=== PATIENT | male | born 1960 | race Caucasian/White ===

== ENCOUNTER → 2018-10-13 | Outpatient (CLI) | payer OTHER | LOC: COL.VAS 13:34 | DX: I35.1 Nonrheumatic aortic (valve) insufficiency (principal) ==

== ENCOUNTER → 2018-11-11 | Outpatient (CLI) | payer SELFPAY ==
[2018-11-11 15:57] LABS: CALCIUM 9.7 mg/dL (8.4-10.2); CREATININE, serum 0.74 (0.66-1.25); POTASSIUM 4.8 mmol/L (3.4-5.0); URIC ACID 5.4 mg/dL (3.5-8.5)
== END ==
LOC: ZCOL.LAB 15:20
DX: B19.20 Unspecified viral hepatitis C without hepatic coma (principal); I10 Essential (primary) hypertension

== ENCOUNTER → 2019-02-19 | Outpatient (CLI) | payer SELFPAY ==
[2019-02-19 18:44] LABS: ALBUMIN 4.4 gm/dL (3.5-5.0); BILIRUBIN,TOTAL 1.2 mg/dL (0.0-1.0); CALCIUM 9.5 mg/dL (8.4-10.2); CREATININE, serum 0.69 (0.66-1.25); TOTAL PROTEIN 7.7 gm/dL (6.4-8.2)
== END ==
LOC: ZLAB.FHCC 17:59 → ZCOL.LAB 17:59
PROVIDERS: Pediatrics
DX: B19.20 Unspecified viral hepatitis C without hepatic coma (principal)

== ENCOUNTER → 2019-02-23 | Outpatient (CLI) | payer SELFPAY | LOC: ZLAB.FHCC 15:14 | DX: B17.10 Acute hepatitis C without hepatic coma (principal) | CPT/HCPCS: 87522 ==

== ENCOUNTER → 2019-04-17 | Outpatient (CLI) | payer SELFPAY ==
[2019-04-17 14:46] LABS: TOTAL IRON BINDING CAPACITY 371 ug/dL (261-462)
[2019-04-18 02:38] LABS: IRON,SERUM 155 ug/dL (35-150)
== END ==
LOC: COL.LAB 13:33
PROVIDERS: Physician Assistant
DX: B17.10 Acute hepatitis C without hepatic coma (principal)

== ENCOUNTER → 2019-04-23 | Outpatient (CLI) | payer SELFPAY | LOC: COL.RAD 11:25 | DX: B17.10 Acute hepatitis C without hepatic coma (principal) ==

== ENCOUNTER → 2019-11-02 | Outpatient (CLI) | payer SELFPAY ==
[2019-11-02 15:30] LABS: BASO % 0.2 % (0.0-2.0); EOS # 0.2 (0.0-0.7); EOS % 1.6 % (0-4.0); GRAN # 8.1 (1.4-6.5); GRAN % 63.1 % (42.2-75.2); HEMATOCRIT 50.7 % (42.0-52.0); HEMOGLOBIN 17.5 g/dl (13.5-18.0); LYMPH # 3.5 (1.2-3.4); LYMPH % 27.2 % (20.0-51.0); MEAN CELL VOLUME 96 fl (80.0-100.0); MEAN CORPUSCULAR HEMOGLOBIN 33 pg (27.0-31.0); MEAN CORPUSCULAR HGB CONC 35 g/dl (33.0-37.0); MEAN PLATELET VOLUME 9.1 fl (7.4-10.4); MONO % 7.4 % (1.7-9.3); PLATELET COUNT 205 K/mm3 (130-400); RED BLOOD COUNT 5.29 M/mm3 (4.20-5.60); REDCELL DISTRIBUTION WIDTH-CV 13.4 % (11.5-14.5)
[2019-11-02 15:44] LABS: ALBUMIN 4.5 gm/dL (3.5-5.0); CALCIUM 9.6 mg/dL (8.4-10.2); CREATININE, serum 0.78 (0.66-1.25); POTASSIUM 4.3 mmol/L (3.4-5.0); TOTAL PROTEIN 8.5 gm/dL (6.4-8.2)
== END ==
LOC: COL.LAB 14:58
PROVIDERS: Student in an Organized Health Care Education/Training Program
DX: B19.20 Unspecified viral hepatitis C without hepatic coma (principal)
CPT/HCPCS: 87522

== ENCOUNTER → 2020-01-19 | Outpatient (CLI) | payer SELFPAY | LOC: COL.LAB 09:31 | DX: B19.20 Unspecified viral hepatitis C without hepatic coma (principal) | CPT/HCPCS: 87522 ==

== ENCOUNTER → 2020-05-10 | Outpatient (CLI) | payer SELFPAY ==
[~2020-05-10] VITALS: Ht 182.9 cm; Wt 92.7 kg
[2020-05-10] VITALS (12 sets, daily range): BP systolic 117–158; BP diastolic 65–93; PULSE 60–75
[~2020-05-10] MED LIST: OXY IR5 MG PO; PRINIVIL10 MG PO
[2020-05-10 10:26] LABS: INR 1.3 (0.8-3.0); PROTHROMBIN TIME 15.1 SECONDS (9.7-12.8)
--- NOTE | 2020-05-10 10:35 | NUR ---
Dr Hanson informed of PT/INR. Dr Hanson states it is ok to proceed with procedure.
--- NOTE | 2020-05-10 10:40 | NUR ---
Pt to ct per ambulation, pt placed in supine position on ct table. Monitors applied.
--- NOTE | 2020-05-10 10:55 | NUR ---
Specimens obtained by Dr Mann and placed in formalin. Specimen labeled.
--- NOTE | 2020-05-10 13:05 | NUR ---
Pt out to car per wheelchair, denies complaints at this time. Resp even and easy. Pt up and into car without assistance.
== END ==
LOC: COL.RAD 09:30
PROVIDERS: Internal Medicine
DX: K76.89 Other specified diseases of liver (principal)
CPT/HCPCS: J3010

== ENCOUNTER 2020-07-01 15:15 | Inpatient (IN) | payer MEDICAID ==
[~2020-07-01] VITALS: Ht 182.9 cm; Wt 84.1 kg
[2020-07-01] MEDS ORDERED: MIRALAX PA17 GM/Dose PO (17:59)
[2020-07-01] MEDS ORDERED: MEGACE20 MG (17:59)
[2020-07-01] MEDS ORDERED: COLACE 100100 MG/CAP PO (18:07)
[2020-07-01] MEDS ORDERED: AMBIEN 5MG TABLE5 MG PO (18:20)
[2020-07-01] MEDS ORDERED: ZOFRAN8 MG PO (18:21)
[2020-07-01] MEDS ORDERED: ROXICODONE 55 MG/TAB PO (18:22)
--- NOTE | 2020-07-01 19:15 | NUR ---
RECEIVED CHANGE OF SHIFT REPORT FROM DAY SHIFT NURSE.
[2020-07-01 20:04] VITALS: BP 126/73; PULSE 99; TEMP 97.5
--- NOTE | 2020-07-01 20:10 | NUR ---
REPORTS GENERALIZED WEAKNESS FOR THE LAST FEW DAYS, REPORTS SHORTNESS OF AIR WITH EXERTION, DENIES NUMBNESS/TINGLING TO EXTREMITIES. REPORTS POOR APPETITE FOR THE PAST MONTH WITH REPORTED 50# WT LOSS IN THE LAST 6 WEEKS.
[2020-07-01 21:21] VITALS: BP 133/82
[2020-07-02 00:23] VITALS: BP 118/76; PULSE 102; TEMP 97.7
[2020-07-02 04:10] VITALS: BP 109/72; PULSE 91; TEMP 97.5
[2020-07-02 06:20] LABS: BASO % 0.2 % (0.0-2.0); EOS % 0.3 % (0-4.0); GRAN # 10.1 (1.4-6.5); GRAN % 82.4 % (42.2-75.2); HEMATOCRIT 39.5 % (42.0-52.0); HEMOGLOBIN 13.3 g/dl (13.5-18.0); LYMPH # 1.2 (1.2-3.4); LYMPH % 10.1 % (20.0-51.0); MEAN CELL VOLUME 100 fl (80.0-100.0); MEAN CORPUSCULAR HEMOGLOBIN 34 pg (27.0-31.0); MEAN CORPUSCULAR HGB CONC 34 g/dl (33.0-37.0); MEAN PLATELET VOLUME 9.7 fl (7.4-10.4); MONO # 0.7 (0.1-0.6); MONO % 6.1 % (1.7-9.3); PLATELET COUNT 181 K/mm3 (130-400); RED BLOOD COUNT 3.97 M/mm3 (4.20-5.60); REDCELL DISTRIBUTION WIDTH-CV 15.1 % (11.5-14.5)
[2020-07-02 06:33] LABS: ALBUMIN 3.2 gm/dL (3.5-5.0); CALCIUM 11.7 mg/dL (8.4-10.2); CREATININE, serum 0.79 (0.66-1.25); POTASSIUM 4.8 mmol/L (3.4-5.0); TOTAL PROTEIN 7.1 gm/dL (6.4-8.2)
--- NOTE | 2020-07-02 07:10 | NUR ---
CHANGE OF SHIFT REPORT GIVEN TO DAY SHIFT NURSEFARHAN.
[2020-07-02 07:41] VITALS: BP 112/64; PULSE 92
--- NOTE | 2020-07-02 08:00 | NUR ---
Patient sitting up in bed, wanting to sit on the edge of the bed. Nursing staff assisted patient to the recliner, chair alarm on. A&Ox3. Reporting pain in abdomen, pain medication given as requested. VSS. Patient drowsy. IV CDI. Patient instructed to call nursing staff for assistance with ambulation. Patient verbalized an understanding. Call light within reach. Bed alarm on
[2020-07-02 08:38] LABS: INR 1.5 (0.8-3.0); PROTHROMBIN TIME 17.2 SECONDS (9.7-12.8)
[2020-07-02 12:00] VITALS: BP 108/63; PULSE 86; TEMP 98.5
--- NOTE | 2020-07-02 12:15 | NUR ---
Paracentesis at the bedside with IR. Patient tolerated well. VS monitored post-op. Bandaid on right side abdomen. Patient resting in bed. Will continue to monitor VS. Call light within reach. Bed alarm on
[2020-07-02 14:27] LABS: PERITONEAL -POLYMORPHONUCLEAR 24.9 % (0-25); PERITONEAL FLUID RBC 1000 /mm3 (0-0)
--- NOTE | 2020-07-02 15:06 | NUR ---
Plans to return home independently. Patient reports that he resides in [facility]. Patient reports that his DTR his EMR contact Darian Jenningsbarber . Patient reports that PCP Dr. Livingston. RX obtained at [facility]. Patient uses cane and his Dr is at the [facility]. Patient denies having any use for [facility]. Educated on services. Will continue to follow for care.
[2020-07-02 16:00] VITALS: BP 110/59; PULSE 90; TEMP 98.4
--- NOTE | 2020-07-02 17:49 | NUR ---
Patient up in the bathroom, has been resting most of the shift. Had a paracentesis and tolerated well. Reports pain in abdomen and pain medication given as requested. A&Ox3. VSS. IV CDI. Nursing staff encouraging patient to increase PO intake. Nurse assisted patient to recliner and patient stating feeling nauseous. Nausea medication given to the patient. Call light within reach. Chair alarm on
--- NOTE | 2020-07-02 19:00 | NUR ---
Received report from Brigida. Seen patient asleep in the recliner. Chair alarm on. He is on room air.
[2020-07-02 19:31] VITALS: BP 102/68; PULSE 95; TEMP 97.4
--- NOTE | 2020-07-02 20:23 | NUR ---
Assesment done. Patient reports lower abdominal pain with hany score of 4/10. He refuses any pain medicine right now. He denies any nausea. He is still in the recliner. Paracentesis site on the right side is CDI.
[2020-07-03] VITALS (7 sets, daily range): BP systolic 89–112; BP diastolic 49–72; PULSE 85–117; TEMP 94.6–98.1
--- NOTE | 2020-07-03 01:25 | NUR ---
Rounds on patient. Saw him having same facial grimace and hand guarding. Asked patient if he needs pain medicine and he said yes. He wanted to go back to bed as well. Assisted patient and repositioned. Bed alarm on. Call light within reach. Dilaudid given.
--- NOTE | 2020-07-03 06:06 | NUR ---
Patient still with abdominal pain. He feels nauseous this morning but refuses Zofran saying it just makes it worse. He is in pain and Dilaudid was given. He was back sitting in the recliner.
[2020-07-03 06:51] LABS: BASO % 0.2 % (0.0-2.0); EOS % 0.1 % (0-4.0); GRAN % 86.5 % (42.2-75.2); HEMATOCRIT 43.9 % (42.0-52.0); HEMOGLOBIN 14.9 g/dl (13.5-18.0); LYMPH # 1.2 (1.2-3.4); LYMPH % 7.2 % (20.0-51.0); MEAN CELL VOLUME 100 fl (80.0-100.0); MEAN CORPUSCULAR HEMOGLOBIN 34 pg (27.0-31.0); MEAN CORPUSCULAR HGB CONC 34 g/dl (33.0-37.0); MEAN PLATELET VOLUME 11.1 fl (7.4-10.4); MONO # 0.8 (0.1-0.6); MONO % 5.1 % (1.7-9.3); PLATELET COUNT 183 K/mm3 (130-400); RED BLOOD COUNT 4.39 M/mm3 (4.20-5.60); REDCELL DISTRIBUTION WIDTH-CV 15.5 % (11.5-14.5)
[2020-07-03 07:05] LABS: CREATININE, serum 1.44 (0.66-1.25); POTASSIUM 5.5 mmol/L (3.4-5.0)
--- NOTE | 2020-07-03 07:41 | NUR ---
Patient sitting up in the recliner. Alert, but drowsy and in pain. Reporting pain in abdomen 12/10. Pain medication given. VSS. IV CDI. Patient instructed to call nursing staff for assistance with ambulation. Warm blanket given to place over abdomen. Call light within reach. Chair alarm on
[2020-07-03 09:18] LABS: HEMATOCRIT 44.8 % (42.0-52.0); HEMOGLOBIN 14.9 g/dl (13.5-18.0); MEAN CELL VOLUME 100 fl (80.0-100.0); MEAN CORPUSCULAR HEMOGLOBIN 33 pg (27.0-31.0); MEAN CORPUSCULAR HGB CONC 33 g/dl (33.0-37.0); MEAN PLATELET VOLUME 9.5 fl (7.4-10.4); PLATELET COUNT 221 K/mm3 (130-400); RED BLOOD COUNT 4.47 M/mm3 (4.20-5.60); REDCELL DISTRIBUTION WIDTH-CV 15.4 % (11.5-14.5)
[2020-07-03 09:26] LABS: CALCIUM 11.9 mg/dL (8.4-10.2); CREATININE, serum 1.78 (0.66-1.25)
[2020-07-03 09:28] LABS: POTASSIUM 5.8 mmol/L (3.4-5.0)
[2020-07-03 09:34] LABS: BAND 10 % (0-10); LYMPHOCYTE 3 % (20.0-51.0); METAMYELOCYTE 1 % (0-0); NEUTROPHILS 82 % (42.0-75.2)
[2020-07-03 09:35] LABS: PLATELET ESTIMATE NORMAL (NORMAL)
--- NOTE | 2020-07-03 17:18 | NUR ---
Patient sitting up in the recliner. Alert, but frequently drowsy. Reports of pain in abdomen, pain medication given when requested. Denies nausea. Patient refusing to eat, nursing staff and family encouraging patient to increase PO intake. Patient refused a shower as well. VSS. IV CDI, fluids infusing. No further needs expressed from the patient. Call light within reach. Chair alarm on
--- NOTE | 2020-07-03 21:42 | NUR ---
Patient laying in bed and resting upon enter the room. Patient alert but very drowsy. Patient appears comfortable. Denies any pain or discomfort at this time. NS running at 75ml/hr via right forearm. Call light within reach. Bed alarms on. Fall precaution maintained.
--- NOTE | 2020-07-03 22:39 | NUR ---
Patient pressed call light and requested to use bathroom. Assisted patient to go to bathroom. Patient ambulates with a walker. 1 person stand-by assist needed for transfer. Patient rated pain 5/10 to his abdomen area at this time. PRN Oxycodone given at 22:35 pm for pain. Call light within reach. Bed alarm on. Will continue to monitor.
[2020-07-04 01:30] VITALS: BP 104/60; PULSE 93
[2020-07-04 04:01] VITALS: BP 107/64; PULSE 88; TEMP 97.4
--- NOTE | 2020-07-04 05:21 | NUR ---
PRN Oxycodone and Dilaudid given throughout the night for abdominal pain. Patient alert but drowsy. Follows verbal commands and answers questions appropriately. Patient denies N/V. Patient refuses to eat or drink. IV fluid infusing well to right forearm. Patient ambulated to the bathroom to void with a walker x 3 times. Call light within reach. Patient denies any needs at this time.
[2020-07-04 06:53] LABS: ALANINE AMINOTRANSFERASE 301 U/L (4-49); ALBUMIN 3.2 gm/dL (3.5-5.0); ALKALINE PHOSPHATASE 288 U/L (50-136); ANION GAP 8 mmol/L (7-16); AST,SGOT > 750 U/L (15-37); BILIRUBIN,TOTAL 3.6 mg/dL (0.0-1.0); BLOOD UREA NITROGEN 62 mg/dL (9-20); CALCIUM 10.8 mg/dL (8.4-10.2); CARBON DIOXIDE 21 mmol/L (22-30); CHLORIDE 97 mmol/L (98-107); CREATININE, serum 1.44 (0.66-1.25); GLUCOSE 106 mg/dL (74-106); POTASSIUM 5.4 mmol/L (3.4-5.0); SODIUM 126 mmol/L (137-145)
--- NOTE | 2020-07-04 07:00 | NUR ---
Report received from ALIZA Tatum. pT in bed sleeping, will continue ot monitor.
[2020-07-04 07:50] VITALS: BP 106/64; PULSE 88; TEMP 97.2
[2020-07-04 08:09] LABS: BASO % 0.2 % (0.0-2.0); EOS % 0.1 % (0-4.0); GRAN % 85.1 % (42.2-75.2); HEMATOCRIT 41.2 % (42.0-52.0); LYMPH # 1.3 (1.2-3.4); LYMPH % 7.7 % (20.0-51.0); MEAN CELL VOLUME 99 fl (80.0-100.0); MEAN CORPUSCULAR HEMOGLOBIN 34 pg (27.0-31.0); MEAN CORPUSCULAR HGB CONC 34 g/dl (33.0-37.0); MONO # 1.1 (0.1-0.6); MONO % 6.4 % (1.7-9.3); PLATELET COUNT 174 K/mm3 (130-400); RED BLOOD COUNT 4.16 M/mm3 (4.20-5.60); REDCELL DISTRIBUTION WIDTH-CV 15.6 % (11.5-14.5)
--- NOTE | 2020-07-04 08:55 | NUR ---
Assessment charted. Pt up to bathroom with CNAs and rosmeryo flexible shaft winder of bed but before could get any bites in for breakfast he laid down and says he can't eat. Drinking some water, IVF to RFA. bed alarm on. Pt able to answer all orientation questions but is delayed at times with responses. Pain is 5/10 to ABD, prn pain meds provided. Will continue to monitor.
--- NOTE | 2020-07-04 10:40 | NUR ---
I have met with patient and spoken with his daughter by phone this morning. Pt kept telling me that he had been "put on shelf and forgotten about" when it came to treatment. He feels like people talk with him about treatment but then don't do anything. His daughter describes him as an "angry fighter". He doesn't give up easily but she reports that he has lost about #35 since diagnosis, he is not eating because he is not hungry and "feels bad" most of the time. His treatment has been delayed by "insurance coverage" and daughter describes it as a difficult process. He was scheduled for chemotherapy at 0900 today at the office but is now an inpatient in hospital. Consult called to Dr Hanks's office nurse at 1040. Daughter had requested that operations supervisor be requested to visit with her father also as he is a strong confucianist. i did discuss with Darian Flaherty, his daughter and reported DPOA-HC, about choices for care being divided like a fork in the road. I will ntofiy her that consult has been ordered and called, operations supervisor has been requested, and will advise of hospice agencies that would be available if her father would come to stay at her house.
[2020-07-04 11:38] VITALS: BP 99/56; PULSE 97; TEMP 98.5
--- NOTE | 2020-07-04 14:16 | NUR ---
Initial visit; Patient sitting up, having trouble forming a sentence but says he is tired. Gareth was receptive to Line Assigner offering a prayer and God's blessings then he drifted off just trying to stay sitting up. Line Assigner will keep him in her prayers and will follow up.
--- NOTE | 2020-07-04 15:24 | NUR ---
I recieved a call from daughter, Darian, that they had selected [facility] to provide service. I faxed the referral for them to review. Tomorrow they will need an order to start home hospice services and they also request that we FAX scripts to their office ([phone]). I had originally thought that pt would require EMS transport, but this afternoon he has gotten up to the bathroom with standby assist. I called Darian and she would be able to come get him tomorrow by private car if needed. [facility] felt that they had recieved the information that they needed. I did advice them that we do not have a copy of the DPOA---that Darian has it and can provide them with copy.
--- NOTE | 2020-07-04 16:18 | NUR ---
Plastic Sheeting Cutter collaborated with Jodie, Palliative RN who advised she spoke with patient and patient's daughter, Darian and they would like to pursue Home Hospice with [facility]. CHRISTINE contacted Mark Anthony with [facility] who advised she spoke with Stefani and they are making arrangements for patient to return home tomorrow. Jodie updated CHRISTINE that hospital bed to be delivered to Stefani' home, where patient will be staying and that Darian is willing to provide transportation for patient. Jodie faxed referral to Mark Anthony at [facility]. CHRISTINE will collaborate with Mark Anthony and Darian tomorrow to set discharge time.
--- NOTE | 2020-07-04 18:14 | NUR ---
Pt resting in bed, up to bathroom as needed, refusing pain meds, refusing to eat, refusing shower. Resting between disturbances, denies needs, will give bedside shift report to nightshift nurse who will reusme care.
--- NOTE | 2020-07-04 19:35 | NUR ---
patient stopped the treatment after approx 2 minutes saying that it was burning
--- NOTE | 2020-07-05 02:13 | NUR ---
Patient resting in bed upon shift start. Occasional facial grimacing noted while resting in bed. Patient denies need for pain medication at this time. Patient appears drowsy and tired. Patient sitting up in bed around 8pm, appears agitated. Patient states, "Everyone in the hospital wears this one, I don't like this gown, it bothers me." Patient requested to have a different color gown. Changed to green gown per patient request. Kept yellow shocks on. Received phone call from patient's daughter Darian and gave update regarding patient. Call light within reach. Patient denies further needs at this time.
--- NOTE | 2020-07-05 06:19 | NUR ---
Patient appears drowsy and very weak throughout the night. Awakens frequently to go to bathroom. Stand-by assist provided. PRN pain med and nausea med given. Call light within reach. Patient denies any needs at this time.
--- NOTE | 2020-07-05 09:00 | NUR ---
PT PLEASANT, AOX4, DROWSY AND SLOW TO RESPOND TO QUESTIONS, REPORTS PAIN IN ABD BUT DOES NOT GIVE NUMBER, 5MG ROXANOL GIVEN, PT NOT GRIMACING OR MOVING AROUND IN BED, SITTING CALMLY ON THE EDGE OF THE BED, BED ALARM ON, PT USES WALKER, STEADY ON FEET, HAS IV FLUIDS RUNNING DUE TO ACTIVE ORDER, PT NOT EATING OR DRINKING MUCH, MEDICATIONS GIVEN, NO OTHER NEEDS.
[2020-07-05] MEDS ORDERED: ATIVAN 1MG T1 MG/TAB PO (09:30)
[2020-07-05] MEDS ORDERED: RT ALBUTER2.5 MG/0.5 IH (09:30)
[2020-07-05] MEDS ORDERED: ZOFRAN ODT8 MG PO (09:31)
[2020-07-05] MEDS ORDERED: TRANSDERM-0.5 MG/21 TD (09:31)
[2020-07-05] MEDS ORDERED: SYSTANE 0.3-0.1 EACH OP (09:32)
[2020-07-05] MEDS ORDERED: ROXANOL 20MG20 MG/ML SL (09:32)
--- NOTE | 2020-07-05 12:15 | NUR ---
removed pt iv, pt escorted downstairs via wheelchair with discharge information
--- NOTE | 2020-07-05 12:40 | NUR ---
On Air Announcer contacted patient's daughter, Darian who advised patient's hospital bed had not been delivered yet. CHRISTINE followed up with Mark Anthony at [facility] who confirmed it will be delivered this morning. CHRISTINE spoke with RN, Svitlana who advised patient would be able to transport by private car. CHRISTINE followed up with Darian who states she will pick up driver patient at noon. CHRISTINE provided this update to Mark Anthony who advised the nurse will meet Darian and patient when they arrive at Darian's home around [address] [place]. CHRISTINE faxed discharge orders to Mark Anthony at [facility]. No additional needs at this time.
== END 2020-07-05 12:16 | disposition hospice, home (50) | DRG 435 ==
LOC: MEDICAL 17:12
PROVIDERS: Physician Assistant; Student in an Organized Health Care Education/Training Program; ADMIT Family Medicine
DX: C22.1 Intrahepatic bile duct carcinoma (principal); E43 Unspecified severe protein-calorie malnutrition; G92 Toxic encephalopathy; R18.0 Malignant ascites; N17.9 Acute kidney failure, unspecified; E22.2 Syndrome of inappropriate secretion of antidiuretic hormone; J44.9 Chronic obstructive pulmonary disease, unspecified; I95.9 Hypotension, unspecified; N40.0 Benign prostatic hyperplasia without lower urinary tract symptoms; K21.9 Gastro-esophageal reflux disease without esophagitis; G89.3 Neoplasm related pain (acute) (chronic); B19.20 Unspecified viral hepatitis C without hepatic coma; F17.210 Nicotine dependence, cigarettes, uncomplicated; T40.605A Adverse effect of unspecified narcotics, initial encounter; E87.5 Hyperkalemia; Z88.0 Allergy status to penicillin; Z20.822 Contact with and (suspected) exposure to COVID-19
CPT/HCPCS: 99232-AI; 99239; G0378; J1170; J1815; J1940; J2405; J7030